=== PATIENT | female | born 1995 | race Two or more races ===

== ENCOUNTER → 2025-07-12 | Emergency (ER) | payer OTHER ==
[~2025-07-12] VITALS: Ht 157.5 cm; Wt 53.5 kg
[~2025-07-12] MED LIST: AMOX-CLAV 875-1 EACH PO; CEFTRIAXONE SODIUM 1,000 MG VIAL IM ONE; CEFTRIAXONE SODIUM 1,000 MG VIAL ONE; LIDOCAINE HCL/MPF 1% 5ML VIAL IJ ONE
== END | disposition home or self-care (01) ==
LOC: ER 20:31
DX: S50.811A Abrasion of right forearm, initial encounter (principal); W55.01XA Bitten by cat, initial encounter; Y93.89 Activity, other specified; Y92.89 Other specified places as the place of occurrence of the external cause